=== PATIENT | female | born 1995 | race Caucasian/White ===

== ENCOUNTER 2017-12-19 23:33 | Inpatient (IN) | payer OTHER ==
[~2017-12-19] VITALS: Ht 160 cm; Wt 59.8 kg
[2017-12-20] VITALS (7 sets, daily range): BP systolic 112–142; BP diastolic 69–87; PULSE 61–77; TEMP 36.5–37; O2SAT 98–100; Ht 160 cm; Wt 59.8 kg
[2017-12-20] MEDS ORDERED: SODIUM CHLORIDE 0.9% 1000ML 1,000 ML IV STA (00:24)
[2017-12-20 00:36] LABS: BASO % 0.2 %; BASO ABS # 0.02 K/uL (0-0.2); EOS % 0.3 %; EOS ABS # 0.03 K/uL (0-0.5); HEMATOCRIT 38.4 % (37-47); HEMOGLOBIN 13.4 g/dL (12.0-16.0); IG# 0.03 K/uL (0.00-0.02); LYMPH % 20.7 %; LYMPH ABS # 2.22 K/uL (1.2-3.4); MEAN CELL VOLUME 87.3 fL (80-100); MEAN CORPUSCULAR HEMOGLOBIN 30.5 pg (25-34); MEAN CORPUSCULAR HGB CONC 34.9 g/dl (32-36); MONO % 9.1 %; MONO ABS # 0.98 K/uL (0.11-0.59); NEUT % 69.4 %; NEUT ABS # 7.46 K/uL (1.4-6.5); PLATELET COUNT 256 K/uL (130-400); RED CELL DISTRIBUTION WIDTH SD 38.9 fL (36.4-46.3); WHITE BLOOD COUNT 10.74 K/uL (4.8-10.8)
[2017-12-20] MEDS ORDERED: DROS3TAB12 PO (00:37)
[2017-12-20] MEDS ORDERED: ESCI10TA17 PO (00:37)
[2017-12-20] MEDS ORDERED: OPTIRAY 320 IV PRN (00:45)
[2017-12-20 00:58] LABS: ALBUMIN 3.7 gm/dl (3.4-5.0); CALCIUM 8.8 mg/dl (8.5-10.1); CREATININE 1.37 mg/dl (0.60-1.20); POTASSIUM 3.4 mmol/L (3.5-5.1)
[2017-12-20 01:00] LABS: TOTAL PROTEIN 7.4 gm/dl (6.4-8.2)
--- NOTE | 2017-12-20 01:02 | EMERGENCY ROOM VISIT NOTE ---
History Report prepared by Hawa: Kirill Hernandez Under the Supervision of: Dr. Dinesh Aquino M.D. First contact with patient: 23:53 Chief Complaint: PELVIC PAIN Stated Complaint: LOWER AB PAIN History of Present Illness The patient is a 22 year old female who presents to the Emergency Room with complaints of worsening LLQ abdominal pain that began 2 days ago. She describes the pain as an 8/10 in severity. She states that the pain radiates to her left back. She has associated symptoms of vomiting. She states the vomit is "normal color". She denies any vaginal symptoms, diarrhea, or chills. She denies any recent trauma to the area. She states that Tylenol helps her symptoms. 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 She states the symptoms resolved themselves and she drove herself home. Patient states that her last menstrual period was 18. She states she has had unprotected sex. She adds that she takes Kari. She denies a history of abdominal surgeries. She denies smoking. Source of History: patient Onset: 2 days ago Position: abdomen (LLQ) Symptom Intensity: 8/10 Timing: worsening Associated Symptoms: + vomiting, No chills, No diarrhea Note: He denies vaginal symptoms. Review of Systems See HPI for pertinent positives & negatives. A total of 10 systems reviewed and were otherwise negative. Past Medical & Surgical Medical Problems: (1) Flank pain Family History No pertinent family history. Social History Smoking Status: Never Smoker Current/Historical Medications Scheduled Drospirenone-Ethinyl Estradiol (Emeriat 28), 1 TAB PO DAILY Escitalopram (Lexapro), 10 MG PO DAILY Allergies Coded Allergies: No Known Allergies (Unverified , 12/20/17) Physical Exam Vital Signs Date Time Temp Pulse Resp B/P (MAP) Pulse Ox O2 Delivery O2 Flow Rate FiO2 12/20/17 03:03 60 108/89 97 Room Air 12/20/17 02:17 71 18 108/80 98 Room Air 12/20/17 01:37 74 18 136/82 100 Room Air 12/19/17 23:47 37.2 76 18 131/87 100 Room Air Physical Exam GENERAL: Patient is uncomfortable appearing and in mild distress. HEENT: No acute trauma, normocephalic atraumatic, mucous membranes moist, no nasal congestion, no scleral icterus. NECK: No stridor, no adenopathy, no meningismus, trachea is midline. LUNGS: No dyspnea. Clear to auscultation and equal bilaterally. No wheeze, no rhonchi. HEART: Regular rate and rhythm. No murmurs, rubs, gallops appreciated. ABDOMEN: Soft, vague left mid abdominal tenderness to palpitation, bowel sounds positive, no masses appreciated, no peritonitis. BACK: No midline tenderness, no CVA tenderness EXTREMITIES: Normal motion all extremities, no cyanosis, no edema. NEUROLOGIC: Alert and oriented, no acute motor or sensory deficits, no focal weakness, cranial nerves grossly intact. SKIN: No rash, no jaundice, no diaphoresis. Medical Decision & Procedures ER Provider Diagnostic Interpretation: Radiology results and stated below per my review and radiologist interpretation: Abdomen/Pelvis CT via [facility]: Left hydronephrosis with proximal 4mm uretal stone. Laboratory Results 12/20/17 00:02 Red Blood Count 4.40, Mean Corpuscular Volume 87.3, Mean Corpuscular Hemoglobin 30.5, Mean Corpuscular Hemoglobin Concent 34.9, Mean Platelet Volume 11.0, Neutrophils (%) (Auto) 69.4, Lymphocytes (%) (Auto) 20.7, Monocytes (%) (Auto) 9.1, Eosinophils (%) (Auto) 0.3, Basophils (%) (Auto) 0.2, Neutrophils # (Auto) 7.46, Lymphocytes # (Auto) 2.22, Monocytes # (Auto) 0.98, Eosinophils # (Auto) 0.03, Basophils # (Auto) 0.02 12/20/17 00:02 Test 12/19/17 23:55 12/20/17 00:02 Urine Color YELLOW Urine Appearance CLEAR (CLEAR) Urine pH 5.5 (4.5-7.5) Urine Specific [place] 1.019 (1.000-1.030) Urine Protein NEG (NEG) Urine Glucose (UA) NEG (NEG) Urine Ketones NEG (NEG) Urine Occult Blood NEG (NEG) Urine Nitrite NEG (NEG) Urine Bilirubin NEG (NEG) Urine Urobilinogen NEG (NEG) Urine Leukocyte Esterase NEG (NEG) Urine WBC (Auto) 1-5 /hpf (0-5) Urine RBC (Auto) 0-4 /hpf (0-4) Urine Hyaline Casts (Auto) 1-5 /lpf (0-5) Urine Epithelial Cells (Auto) 20-30 /lpf (0-5) Urine Bacteria (Auto) NEG (NEG) Urine Test NEG (NEG) White Blood Count 10.74 K/uL (4.8-10.8) Red Blood Count 4.40 M/uL (4.2-5.4) Hemoglobin 13.4 g/dL (12.0-16.0) Hematocrit 38.4 % (37-47) Mean Corpuscular Volume 87.3 fL (80-100) Mean Corpuscular Hemoglobin 30.5 pg (25-34) Mean Corpuscular Hemoglobin Concent 34.9 g/dl (32-36) Platelet Count 256 K/uL (130-400) Mean Platelet Volume 11.0 fL (7.4-10.4) Neutrophils (%) (Auto) 69.4 % Lymphocytes (%) (Auto) 20.7 % Monocytes (%) (Auto) 9.1 % Eosinophils (%) (Auto) 0.3 % Basophils (%) (Auto) 0.2 % Neutrophils # (Auto) 7.46 K/uL (1.4-6.5) Lymphocytes # (Auto) 2.22 K/uL (1.2-3.4) Monocytes # (Auto) 0.98 K/uL (0.11-0.59) Eosinophils # (Auto) 0.03 K/uL (0-0.5) Basophils # (Auto) 0.02 K/uL (0-0.2) RDW Standard Deviation 38.9 fL (36.4-46.3) RDW Coefficient of Variation 12.0 % (11.5-14.5) Immature Granulocyte % (Auto) 0.3 % Immature Granulocyte # (Auto) 0.03 K/uL (0.00-0.02) Anion Gap 7.0 mmol/L (3-11) Est Creatinine Clear Calc Drug Dose 52.8 ml/min Estimated GFR () 62.9 Estimated GFR (Non- 54.2 BUN/Creatinine Ratio 8.6 (10-20) Calcium Level 8.8 mg/dl (8.5-10.1) Total Bilirubin 0.8 mg/dl (0.2-1) Direct Bilirubin 0.2 mg/dl (0-0.2) Aspartate Amino Transf (AST/SGOT) 11 U/L (15-37) Alanine Aminotransferase (ALT/SGPT) 15 U/L (12-78) Alkaline Phosphatase 39 U/L (45-117) Total Protein 7.4 gm/dl (6.4-8.2) Albumin 3.7 gm/dl (3.4-5.0) Lipase 199 U/L (73-393) Laboratory results as reviewed by me. Medications Administered Medications (Trade) Dose Ordered Sig/Swati Route Start Time Stop Time Status Last Admin Dose Admin Sodium Chloride 1,000 ml @ 999 mls/hr Q1H1M STAT IV 12/20/17 00:24 12/20/17 01:24 DC 12/20/17 00:30 999 MLS/HR Ondansetron HCl (Zofran Inj) 4 mg NOW STAT IV 12/20/17 01:04 12/20/17 01:05 DC 12/20/17 01:12 4 MG Hydromorphone HCl (Dilaudid Inj) 1 mg NOW STAT IV 12/20/17 01:33 12/20/17 01:34 DC 12/20/17 01:36 1 MG Hydromorphone HCl (Dilaudid Inj) 0.5 mg NOW STAT IV 12/20/17 03:35 12/20/17 03:57 DC 12/20/17 04:05 0.5 MG ED Course 0005: The patient was evaluated in room C7. A complete history and physical exam was performed. 0024: Sodium Chloride 1000 ml @ 999 mls/hr IV 0045: Ioversol 125ml IV 0104: Zofran Inj 4mg IV 0133: Dilaudid Inj 1mg IV 0234: Upon reevaluation, the patient will be further evaluated. Discussed results and treatment plan with the patient. She verbalized understanding and agreement with the treatment plan. The patient will be evaluated for further management. Medical Decision Differential: Renal Colic, Pyelonephritis, Hydronephrosis, Appendicitis, Diverticulitis, Retroperitoneal Bleed/Infection, Aortic Pathology, MSK, Neurologic Pathology, amongst other pathologies entertained. 22 yr old female seen in conjunction with Dr Crain for left flank pain. Well appearing in moderate distress. Symptoms more flank than pelvic at this time. Given no previous stone issues, persistent pain, and some left side TTP felt it was reasonable doing CT abdo/pelv (discussed cancer risks). CT with left proximal ureteral stone with severe hydro. I do not feel this will likely pass given the 48 hours it already has been ongoing, in addition her Cr is bumped for a 22 yr old. Given IV fluids, diluadid and zofran with improvement. No evidence that this is infected at this time. Hospitalist consulted for further management. Medication Reconcilliation Current Medication List: was personally reviewed by me Blood Pressure Screening Patient's blood pressure: Normal blood pressure Blood pressure disposition: Did not require urgent referral Impression Primary Impression: Hydronephrosis, left Additional Impressions: Left ureteral stone Renal insufficiency Scribe Attestation The scribe's documentation has been prepared under my direction and personally reviewed by me in its entirety. I confirm that the note above accurately reflects all work, treatment, procedures, and medical decision making performed by me. Departure Information Dispostion Being Evaluated By Hospitalist Referrals Abril Mosley DO (PCP) Forms HOME CARE DOCUMENTATION FORM, IMPORTANT VISIT INFORMATION, WORK / SCHOOL INSTRUCTIONS Patient Instructions [facility] Problem Qualifiers
[2017-12-20] MEDS ORDERED: ONDANSETRON INJ 2 MG/ML 2 ML VIAL IV STA (01:04)
--- NOTE | 2017-12-20 01:08 | EMERGENCY ROOM VISIT NOTE ---
History First contact with patient: 23:53 Chief Complaint: PELVIC PAIN Stated Complaint: LOWER AB PAIN History of Present Illness The patient is a 22 year old female who presents to the Emergency Room with complaints of 2 days of left lower abdominal pain radiating to her left back, a/ w vomiting and chills. Tylenol makes it better. Pt saw her PCP today and transvaginal US was negative. Has no h/o cysts. Denies diarrhea, although reports pre-syncope earlier today while at the pharmacy, but was able to drive herself home. Has been hydrating well, eating food caused emesis. Reports she is on Lucinda OCP, LMP was 3 weeks ago. Also on Lexapro and probiotic for weight loss. Review of Systems See HPI for pertinent positives and negatives. Past Medical/Surgical History Medical Problems: (1) Flank pain Social History Smoking Status: Never Smoker Alcohol Use: occasionally Drug Use: none Current/Historical Medications Scheduled Drospirenone-Ethinyl Estradiol (Emerita 28), 1 TAB PO DAILY Escitalopram (Lexapro), 10 MG PO DAILY Physical Exam Vital Signs Date Time Temp Pulse Resp B/P (MAP) Pulse Ox O2 Delivery O2 Flow Rate FiO2 12/20/17 04:05 65 17 138/77 98 12/20/17 03:03 60 108/89 97 Room Air 12/20/17 02:17 71 18 108/80 98 Room Air 12/20/17 01:37 74 18 136/82 100 Room Air 12/19/17 23:47 37.2 76 18 131/87 100 Room Air Physical Exam GENERAL: Awake, alert, well-appearing, in no distress HENT: Normocephalic, atraumatic. Oropharynx unremarkable. EYES: Normal conjunctiva. Sclera non-icteric. NECK: Supple. No nuchal rigidity. FROM. No JVD. RESPIRATORY: Clear to auscultation. CARDIAC: Regular rate, normal rhythm. Extremities warm and well perfused. Pulses equal. ABDOMEN: Soft, non-distended. Mild tenderness to palpation in LLQ. No rebound or guarding. No masses. RECTAL: Deferred. MUSCULOSKELETAL: Chest examination reveals no tenderness. The back is symmetrical on inspection without obvious abnormality. There is no CVA tenderness to palpation. No joint edema. LOWER EXTREMITIES: Calves are equal size bilaterally and non-tender. No edema. No discoloration. NEURO: Normal sensorium. No sensory or motor deficits noted. SKIN: No rash or jaundice noted. Medical Decision & Procedures Laboratory Results 12/20/17 00:02 Red Blood Count 4.40, Mean Corpuscular Volume 87.3, Mean Corpuscular Hemoglobin 30.5, Mean Corpuscular Hemoglobin Concent 34.9, Mean Platelet Volume 11.0, Neutrophils (%) (Auto) 69.4, Lymphocytes (%) (Auto) 20.7, Monocytes (%) (Auto) 9.1, Eosinophils (%) (Auto) 0.3, Basophils (%) (Auto) 0.2, Neutrophils # (Auto) 7.46, Lymphocytes # (Auto) 2.22, Monocytes # (Auto) 0.98, Eosinophils # (Auto) 0.03, Basophils # (Auto) 0.02 12/20/17 00:02 Test 12/19/17 23:55 12/20/17 00:02 Urine Color YELLOW Urine Appearance CLEAR (CLEAR) Urine pH 5.5 (4.5-7.5) Urine Specific [place] 1.019 (1.000-1.030) Urine Protein NEG (NEG) Urine Glucose (UA) NEG (NEG) Urine Ketones NEG (NEG) Urine Occult Blood NEG (NEG) Urine Nitrite NEG (NEG) Urine Bilirubin NEG (NEG) Urine Urobilinogen NEG (NEG) Urine Leukocyte Esterase NEG (NEG) Urine WBC (Auto) 1-5 /hpf (0-5) Urine RBC (Auto) 0-4 /hpf (0-4) Urine Hyaline Casts (Auto) 1-5 /lpf (0-5) Urine Epithelial Cells (Auto) 20-30 /lpf (0-5) Urine Bacteria (Auto) NEG (NEG) Urine Test NEG (NEG) White Blood Count 10.74 K/uL (4.8-10.8) Red Blood Count 4.40 M/uL (4.2-5.4) Hemoglobin 13.4 g/dL (12.0-16.0) Hematocrit 38.4 % (37-47) Mean Corpuscular Volume 87.3 fL (80-100) Mean Corpuscular Hemoglobin 30.5 pg (25-34) Mean Corpuscular Hemoglobin Concent 34.9 g/dl (32-36) Platelet Count 256 K/uL (130-400) Mean Platelet Volume 11.0 fL (7.4-10.4) Neutrophils (%) (Auto) 69.4 % Lymphocytes (%) (Auto) 20.7 % Monocytes (%) (Auto) 9.1 % Eosinophils (%) (Auto) 0.3 % Basophils (%) (Auto) 0.2 % Neutrophils # (Auto) 7.46 K/uL (1.4-6.5) Lymphocytes # (Auto) 2.22 K/uL (1.2-3.4) Monocytes # (Auto) 0.98 K/uL (0.11-0.59) Eosinophils # (Auto) 0.03 K/uL (0-0.5) Basophils # (Auto) 0.02 K/uL (0-0.2) RDW Standard Deviation 38.9 fL (36.4-46.3) RDW Coefficient of Variation 12.0 % (11.5-14.5) Immature Granulocyte % (Auto) 0.3 % Immature Granulocyte # (Auto) 0.03 K/uL (0.00-0.02) Anion Gap 7.0 mmol/L (3-11) Est Creatinine Clear Calc Drug Dose 52.8 ml/min Estimated GFR () 62.9 Estimated GFR (Non- 54.2 BUN/Creatinine Ratio 8.6 (10-20) Calcium Level 8.8 mg/dl (8.5-10.1) Total Bilirubin 0.8 mg/dl (0.2-1) Direct Bilirubin 0.2 mg/dl (0-0.2) Aspartate Amino Transf (AST/SGOT) 11 U/L (15-37) Alanine Aminotransferase (ALT/SGPT) 15 U/L (12-78) Alkaline Phosphatase 39 U/L (45-117) Total Protein 7.4 gm/dl (6.4-8.2) Albumin 3.7 gm/dl (3.4-5.0) Lipase 199 U/L (73-393) Medications Administered Medications (Trade) Dose Ordered Sig/Swati Route Start Time Stop Time Status Last Admin Dose Admin Sodium Chloride 1,000 ml @ 999 mls/hr Q1H1M STAT IV 12/20/17 00:24 12/20/17 01:24 DC 12/20/17 00:30 999 MLS/HR Ondansetron HCl (Zofran Inj) 4 mg NOW STAT IV 12/20/17 01:04 12/20/17 01:05 DC 12/20/17 01:12 4 MG Hydromorphone HCl (Dilaudid Inj) 1 mg NOW STAT IV 12/20/17 01:33 12/20/17 01:34 DC 12/20/17 01:36 1 MG Hydromorphone HCl (Dilaudid Inj) 0.5 mg NOW STAT IV 12/20/17 03:35 12/20/17 03:57 DC 12/20/17 04:05 0.5 MG ED Course 2354 signed up, reviewed records, assessed patient [id number] attending sees pt, orders labs [address] with pt. Pain is controlled with dilaudid. 0215 d/w [facility] hospitalist - given pt's need for IV pain control and proximal stone 4mm, likely will require urology intervention, possibly a stent. [facility] will admit. Medical Decision The patient is a 22 year old female who presents to the Emergency Room with complaints of 2 days of left lower abdominal pain radiating to her left back, a/ w vomiting and chills. Tylenol makes it better. Pt saw her PCP today and transvaginal US was negative. Has no h/o cysts. Denies diarrhea, although reports pre-syncope earlier today while at the pharmacy, but was able to drive herself home. Has been hydrating well, eating food caused emesis. Reports she is on Lucinda OCP, LMP was 3 weeks ago. Also on Lexapro and probiotic for weight loss. 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 Urine is negative for infection. D/w pt option of going home with PO pain control vs admission and urology consult tomorrow possibly, and pt opts to stay. D/w [facility] hospitalist team, they will admit her. Impression Primary Impression: Left nephrolithiasis Additional Impression: Elevated serum creatinine Departure Information Dispostion Admitted as an inpatient Condition GOOD Patient Instructions [facility] Resident Tracking Resident Involvement: Resident Care Provided Care Provided: Adult ED Problem Qualifiers
[2017-12-20] MEDS ORDERED: HYDROmorphone INJ 1 MG/ML SYR IV STA (01:33)
[2017-12-20] MEDS ORDERED: HYDROmorphone INJ 0.5 MG/0.5 ML SYR IV STA (03:35)
[2017-12-20] MEDS ORDERED: POTASSIUM CHLORIDE 20 MEQ TABCR PO STA (03:44)
[2017-12-20] MEDS ORDERED: ALUMINUM/MAGNESIUM/SIMETH (MAALOX MAX) 30 ML UDC PO PRN (03:45)
[2017-12-20] MEDS ORDERED: POLYETHYLENE (MIRALAX) 17 GM PACK PO PRN ×2 (03:45→06:45)
[2017-12-20] MEDS ORDERED: ONDANSETRON INJ 2 MG/ML 2 ML VIAL IV PRN ×3 (03:45→10:15)
[2017-12-20] MEDS ORDERED: SODIUM CHLORIDE 0.9% 1000ML 1,000 ML IV SCH (03:45)
[2017-12-20] MEDS ORDERED: ACETAMINOPHEN 325 MG TAB PO PRN (03:45)
[2017-12-20] MEDS ORDERED: MAGNESIUM HYDROXIDE SUSP 30 ML UDC PO PRN (03:45)
--- NOTE | 2017-12-20 03:59 | History and Physical ---
History & Physical Date & Time of Service: Dec 20, 2017 at 03:50 Chief Complaint: Lower Ab Pain Primary Care Physician: Abril Mosley DO History of Present Illness Source: patient The patient is a 22 year old female who presents to the Emergency Room with complaints of flank pain. The pain is located on her left flank. It started 2 days ago. It is a sharp pain that radiates to her back. She rates the pain as a 8/10 in severity. It is worse with ambulation. She has had associated vomiting and fever. She denies any dysuria, hematuria, vaginal bleeding, vaginal discharge, diarrhea, or constipation. She did go and see her PCP who gave her symptomatic medications and sent her for a pelvic ultrasound today due to concern for a ovarian cyst. This result came back as negative. The patient continued to have severe pain therefore she came to the ED. In the ED her vitals were stable. She was found to have a creatinine of 1.37 and potassium of 3.7. CT showed a 4mm stone with left sided hydronephrosis. Her UA was negative as was a urine test. Past Medical/Surgical History Depression/Anxiety -lexapro Family History Noncontributory Social History Smoking Status: Never Smoker Alcohol Use: none Drug Use: none Marital Status: single Occupational Status: student Immunizations History of Influenza Vaccine: Unknown History of Tetanus Vaccine?: Unknown History of Pneumococcal: Unknown History of Hepatitis B Vaccine: Unknown Multi-Drug Resistant Organisms History of MDRO: No Allergies Coded Allergies: No Known Allergies (Unverified , 12/20/17) Home Medications Scheduled Drospirenone-Ethinyl Estradiol (Emerita 28), 1 TAB PO DAILY Escitalopram (Lexapro), 10 MG PO DAILY Sulfa/Trimethoprim (Bactrim Ds 800MG/160MG), 1 TAB PO BID Scheduled PRN Tramadol (Ultram), 1 TAB PO TID PRN for Pain Review of Systems Constitutional: + fever, + sweats, No chills Respiratory: No cough, No sputum, No shortness of breath Cardiovascular: No chest pain, No edema, No palpitations Abdomen: + pain, + nausea, + vomiting, No diarrhea, No constipation, No GI bleeding Genitourinary - Female: No dysuria, No urinary frequency, No vaginal bleeding, No vaginal discharge, No vaginal itching Endocrine: No fatigue Hematologic / Lymphatic: No abnormal bleeding/bruising Integumentary: No rash, No itch, No new/changing skin lesions Physical Exam Vital Signs Date Time Temp Pulse Resp B/P (MAP) Pulse Ox O2 Delivery O2 Flow Rate FiO2 12/20/17 03:03 60 108/89 97 Room Air 12/20/17 02:17 71 18 108/80 98 Room Air 12/20/17 01:37 74 18 136/82 100 Room Air 12/19/17 23:47 37.2 76 18 131/87 100 Room Air General Appearance: WD/WN, no apparent distress Head: normocephalic, atraumatic ENT: hearing grossly normal, pharynx normal Neck: supple, trachea midline Respiratory/Chest: lungs clear, no respiratory distress, no accessory muscle use Cardiovascular: regular rate, rhythm, no murmur, normal peripheral pulses Abdomen/GI: normal bowel sounds, soft, + tenderness (LLQ) Back: normal inspection, no muscle spasm, normal range of motion, + left CVA tenderness Extremities/Musculoskelatal: no calf tenderness, no pedal edema, non-tender Neurologic/Psych: alert, normal mood/affect, oriented x 3 Skin: normal color, warm/dry, no rash Diagnostics Laboratory Results Results Past 24 Hours Test 12/19/17 23:55 12/20/17 00:02 Range/Units Urine Color YELLOW Urine Appearance CLEAR CLEAR Urine pH 5.5 4.5-7.5 Urine Specific [place] 1.019 1.000-1.030 Urine Protein NEG NEG Urine Glucose (UA) NEG NEG Urine Ketones NEG NEG Urine Occult Blood NEG NEG Urine Nitrite NEG NEG Urine Bilirubin NEG NEG Urine Urobilinogen NEG NEG Urine Leukocyte Esterase NEG NEG Urine WBC (Auto) 1-5 0-5 /hpf Urine RBC (Auto) 0-4 0-4 /hpf Urine Hyaline Casts (Auto) 1-5 0-5 /lpf Urine Epithelial Cells (Auto) 20-30 0-5 /lpf Urine Bacteria (Auto) NEG NEG Urine Test NEG NEG White Blood Count 10.74 4.8-10.8 K/uL Red Blood Count 4.40 4.2-5.4 M/uL Hemoglobin 13.4 12.0-16.0 g/dL Hematocrit 38.4 37-47 % Mean Corpuscular Volume 87.3 80-100 fL Mean Corpuscular Hemoglobin 30.5 25-34 pg Mean Corpuscular Hemoglobin Concent 34.9 32-36 g/dl Platelet Count 256 130-400 K/uL Mean Platelet Volume 11.0 7.4-10.4 fL Neutrophils (%) (Auto) 69.4 % Lymphocytes (%) (Auto) 20.7 % Monocytes (%) (Auto) 9.1 % Eosinophils (%) (Auto) 0.3 % Basophils (%) (Auto) 0.2 % Neutrophils # (Auto) 7.46 1.4-6.5 K/uL Lymphocytes # (Auto) 2.22 1.2-3.4 K/uL Monocytes # (Auto) 0.98 0.11-0.59 K/uL Eosinophils # (Auto) 0.03 0-0.5 K/uL Basophils # (Auto) 0.02 0-0.2 K/uL RDW Standard Deviation 38.9 36.4-46.3 fL RDW Coefficient of Variation 12.0 11.5-14.5 % Immature Granulocyte % (Auto) 0.3 % Immature Granulocyte # (Auto) 0.03 0.00-0.02 K/uL Sodium Level 134 136-145 mmol/L Potassium Level 3.4 3.5-5.1 mmol/L Chloride Level 102 98-107 mmol/L Carbon Dioxide Level 25 21-32 mmol/L Anion Gap 7.0 3-11 mmol/L Blood Urea Nitrogen 12 7-18 mg/dl Creatinine 1.37 0.60-1.20 mg/dl Est Creatinine Clear Calc Drug Dose 52.8 ml/min Estimated GFR () 62.9 Estimated GFR (Non- 54.2 BUN/Creatinine Ratio 8.6 10-20 Random Glucose 114 70-99 mg/dl Calcium Level 8.8 8.5-10.1 mg/dl Total Bilirubin 0.8 0.2-1 mg/dl Direct Bilirubin 0.2 0-0.2 mg/dl Aspartate Amino Transf (AST/SGOT) 11 15-37 U/L Alanine Aminotransferase (ALT/SGPT) 15 12-78 U/L Alkaline Phosphatase 39 45-117 U/L Total Protein 7.4 6.4-8.2 gm/dl Albumin 3.7 3.4-5.0 gm/dl Lipase 199 73-393 U/L Diagnostic Radiology Abdomen CT/Pelvis; 4mm kidney stone with hydronephrosis Impression Assessment and Plan 22 year old female presented with left sided flank pain and was found to have a 4mm kidney stone with associated hydronephrosis Kidney Stone - Urology consult placed for possible need for stent placement - IV fluids 100mls/hr - Dilaudid 0.5mg q2 prn pain - Zofran 4mg prn nausea - Ceftriaxone 2grams IV Q24 - NPO Hypokalemia - 40meq added to IV fluids - follow bmp BRENDA on CKD stage 3a - creatine elevated at 1.37 - unusual to have low GFR in 22 year old female - warrants workup as outpatient Depression/Anxiety - hold lexapro Contraception use - hold OCP DVT prophylaxis - patient able to ambulate and possible procedure tomorrow therefore chemical prophylaxis not warranted - SCD's FULL CODE Attending addendum: I have physically seen this patient, have supervised the medical residents activities, and agree with the H&P unless as otherwise noted. Assessment and Plan: 4 mm left ureteral stone with hydronephrosis/AK I-- N.p.o. Ceftriaxone 1 g IV daily Follow urine culture and sensitivity Dilaudid IV as needed pain. IV fluids. Serial CBC with differential, BMP and magnesium level. Zofran as needed Level of Care Med/Surg Advanced Directives Existing Advance Directive: No Existing Living Will: No Existing Power of Tag Maker: No Resuscitation Status FULL RESUSCITATION VTE Prophylaxis VTE Risk Assessment Done? Y/N: Yes Risk Level: Low Given or contraindicated: SCD's Social Service Consult None Apply
[2017-12-20] MEDS ORDERED: CEFTRIAXONE SOD INJ 2,000 MG in DEXTROSE 5% 50ML 50 ML IV SCH (06:00)
[2017-12-20] MEDS: POTASSIUM CHLORIDE INJ 40 MEQ in SODIUM CHLORIDE 0.9% 1000ML 1,000 ML IV SCH ×2 (06:13→15:23)
[2017-12-20] MEDS: HYDROmorphone INJ 0.5 MG/0.5 ML SYR IV PRN ×2 (06:20→08:19)
--- NOTE | 2017-12-20 08:49 | DIAGNOSTIC IMAGING REPORT ---
ABD/PELVIS IV CONTRAST ONLY CLINICAL HISTORY: 22 years-old Female presenting with left flank pain, nausea/voimting x 2 days. TECHNIQUE: Multidetector CT of the abdomen and pelvis was performed after the administration of intravenous contrast. IV contrast: 94 mL of Optiray 320. A dose lowering technique was used consistent with the principles of ALARA (as low as reasonably achievable). COMPARISON: None. CT DOSE (mGy.cm): The estimated cumulative dose is 298.86 mGy.cm. FINDINGS: Quality Assurance Supervisor Trim topogram: Unremarkable. Lung bases: Lungs and pleural spaces clear. Normal heart size. No pericardial or pleural effusion. Liver: Normal morphology. No liver lesion. Patent hepatic vasculature. Biliary: No intrahepatic or extrahepatic biliary ductal dilatation. Normal gallbladder. Pancreas: Normal. Spleen: Normal. Adrenal glands: Normal. Kidneys and ureters: Excretion of contrast from the right kidney with normal appearance of the right renal parenchyma. No right hydronephrosis. Delayed phase of perfusion in the left kidney with left renal enlargement and left perinephric fat stranding. Moderate left pelvocaliectasis. An obstructing calculus measuring 4 mm is noted at the left ureteropelvic junction. Mild urothelial thickening and periureteral fat stranding at the level of the renal pelvis and proximal left ureter. The right ureter is normal. Bladder: Normal. No bladder calculi. Pelvic organs: Uterus and ovaries normal. Bowel: Mild stool burden throughout normal caliber colon. The appendix is normal. No bowel obstruction. Peritoneal cavity: Trace free fluid in the pelvis. Lymph nodes: No enlarged lymph nodes in the abdomen or pelvis. Vasculature: Aorta and IVC patent and normal in caliber. Abdominal wall: Small fat-containing umbilical hernia. Musculoskeletal: Congenital bifid L5 vertebral body. IMPRESSION: 1. Obstructing 4 mm calculus at the left ureteropelvic junction with resultant moderate left hydronephrosis. 2. No additional renal or ureteral calculi. No bladder calculi. Electronically signed by: Mitchell Kaur M.D. 12/20/2017 8:48 AM Dictated Date/Time: 12/20/2017 8:42 AM
[2017-12-20] MEDS ORDERED: DROSPIRENONE ETHINYL ESTRADIOL PO SCH (09:00)
[2017-12-20] MEDS ORDERED: ESCITALOPRAM OXALATE 10 MG TAB PO SCH (09:00)
--- NOTE | 2017-12-20 09:00 | DIAGNOSTIC IMAGING REPORT ---
KUB CLINICAL HISTORY: 22 years-old Female presenting with ureteral stone, flank pain. TECHNIQUE: 12/20/2017 COMPARISON: CT of the abdomen and pelvis performed earlier the same day. FINDINGS: Nonobstructive bowel gas pattern. No gross pneumoperitoneum. Delayed excretion of contrast in the left kidney with abrupt cutoff at the level of the obstructing proximal left ureteral calculus, which projects at the level of L2-3. Dilation of the left renal collecting system. Opacification of the urinary bladder. Osseous structures normal. Lung bases clear. IMPRESSION: 1. Moderate left hydronephrosis with an obstructing left ureteral calculus at the level of L2-3. Electronically signed by: Mitchell Kaur M.D. 12/20/2017 8:58 AM Dictated Date/Time: 12/20/2017 8:57 AM
--- NOTE | 2017-12-20 09:56 | Family Medicine Progress Note ---
Progress Note Date of Service Dec 20, 2017. Subjective Pt evaluation today including: conversation w/ patient, physical exam, chart review, lab review, review of inpatient medication list Pain: 6/10 pain reported PO Intake: NPO Voiding: no voiding problems Ms. Beaulieu reports her pain is slightly improved with analgesia. She still notes 6/10 left sided flank pain that radiates to her back. She denies nausea, vomiting, dysuria, fever or chills. She states she has never had problems with her kidneys in the past and has never had a kidney stone before. Constitutional: No fever, No chills Respiratory: No cough, No shortness of breath Cardiovascular: No chest pain, No edema Abdomen: + pain, No nausea, No vomiting, No diarrhea, No constipation Female : No dysuria, No urinary frequency, No hematuria All Other Systems: Reviewed and Negative Medications Current Inpatient Medications Medications (Trade) Dose Ordered Sig/Swati Route Start Time Stop Time Status Last Admin Dose Admin Ioversol (Optiray 320) 125 ml UD PRN IV 12/20/17 00:45 12/24/17 00:44 Acetaminophen (Tylenol Tab) 650 mg Q4H PRN PO 12/20/17 03:45 01/19/18 03:44 Al Hydrox/Mg Hydrox/Simethicone (Maalox Max Susp) 15 ml Q4H PRN PO 12/20/17 03:45 01/19/18 03:44 Magnesium Hydroxide (Milk Of Magnesia Susp) 30 ml Q6H PRN PO 12/20/17 03:45 01/19/18 03:44 Ondansetron HCl (Zofran Inj) 4 mg Q6H PRN IV 12/20/17 03:45 01/19/18 03:44 Hydromorphone HCl (Dilaudid Inj) 0.5 mg Q2HWA PRN IV 12/20/17 03:45 01/03/18 03:44 12/20/17 08:19 0.5 MG Ondansetron HCl (Zofran Inj) 4 mg Q4H PRN IV 12/20/17 03:45 01/19/18 03:44 Ceftriaxone Sodium 2000 mg/ Dextrose 70 ml @ 100 mls/hr Q24H IV 12/20/17 06:00 12/30/17 05:59 12/20/17 06:14 100 MLS/HR Potassium Chloride 40 meq/ Sodium Chloride 1,020 ml @ 100 mls/hr [id number] IV 12/20/17 05:30 01/19/18 05:29 12/20/17 06:13 100 MLS/HR Polyethylene (Miralax Powder Packet) 17 gm DAILY PRN PO 12/20/17 06:45 01/19/18 06:44 Objective Vital Signs Date Time Temp Pulse Resp B/P (MAP) Pulse Ox O2 Delivery O2 Flow Rate FiO2 12/20/17 08:34 Room Air 12/20/17 07:59 36.8 63 16 122/74 (90) 100 Room Air 12/20/17 06:02 37.0 63 18 142/87 Room Air 12/20/17 04:43 79 20 143/83 98 Room Air 12/20/17 04:05 65 17 138/77 98 12/20/17 03:03 60 108/89 97 Room Air 12/20/17 02:17 71 18 108/80 98 Room Air 12/20/17 01:37 74 18 136/82 100 Room Air 12/19/17 23:47 37.2 76 18 131/87 100 Room Air Physical Exam General Appearance: WD/WN, no apparent distress Respiratory/Chest: lungs clear, normal breath sounds, no respiratory distress, no accessory muscle use Cardiovascular: regular rate, rhythm, no edema, no gallop, no murmur Abdomen: normal bowel sounds, soft, no organomegaly, no pulsatile mass, + pertinent finding (tender over left flank) Extremities: no pedal edema, no calf tenderness Laboratory Results Last 24 Hours Test 12/19/17 23:55 12/20/17 00:02 Urine Color YELLOW Urine Appearance CLEAR Urine pH 5.5 Urine Specific Wylie 1.019 Urine Protein NEG Urine Glucose (UA) NEG Urine Ketones NEG Urine Occult Blood NEG Urine Nitrite NEG Urine Bilirubin NEG Urine Urobilinogen NEG Urine Leukocyte Esterase NEG Urine WBC (Auto) 1-5 /hpf Urine RBC (Auto) 0-4 /hpf Urine Hyaline Casts (Auto) 1-5 /lpf Urine Epithelial Cells (Auto) 20-30 /lpf Urine Bacteria (Auto) NEG Urine Test NEG White Blood Count 10.74 K/uL Red Blood Count 4.40 M/uL Hemoglobin 13.4 g/dL Hematocrit 38.4 % Mean Corpuscular Volume 87.3 fL Mean Corpuscular Hemoglobin 30.5 pg Mean Corpuscular Hemoglobin Concent 34.9 g/dl Platelet Count 256 K/uL Mean Platelet Volume 11.0 fL Neutrophils (%) (Auto) 69.4 % Lymphocytes (%) (Auto) 20.7 % Monocytes (%) (Auto) 9.1 % Eosinophils (%) (Auto) 0.3 % Basophils (%) (Auto) 0.2 % Neutrophils # (Auto) 7.46 K/uL Lymphocytes # (Auto) 2.22 K/uL Monocytes # (Auto) 0.98 K/uL Eosinophils # (Auto) 0.03 K/uL Basophils # (Auto) 0.02 K/uL RDW Standard Deviation 38.9 fL RDW Coefficient of Variation 12.0 % Immature Granulocyte % (Auto) 0.3 % Immature Granulocyte # (Auto) 0.03 K/uL Sodium Level 134 mmol/L Potassium Level 3.4 mmol/L Chloride Level 102 mmol/L Carbon Dioxide Level 25 mmol/L Anion Gap 7.0 mmol/L Blood Urea Nitrogen 12 mg/dl Creatinine 1.37 mg/dl Est Creatinine Clear Calc Drug Dose 52.8 ml/min Estimated GFR () 62.9 Estimated GFR (Non- 54.2 BUN/Creatinine Ratio 8.6 Random Glucose 114 mg/dl Calcium Level 8.8 mg/dl Total Bilirubin 0.8 mg/dl Direct Bilirubin 0.2 mg/dl Aspartate Amino Transf (AST/SGOT) 11 U/L Alanine Aminotransferase (ALT/SGPT) 15 U/L Alkaline Phosphatase 39 U/L Total Protein 7.4 gm/dl Albumin 3.7 gm/dl Lipase 199 U/L Assessment and Plan Ms. Beaulieu is a 22 year old female with a history of depression who presented with left sided flank pain and was found to have a 4mm kidney stone with associated hydronephrosis Kidney Stone - Thank you to urology for consult - will undergo stent placement - Continue IV fluids 100mls/hr (NS + KCl) - Dilaudid 0.5mg q2 prn pain - Zofran 4mg prn nausea - Ceftriaxone 2grams IV Q24 - no sign of infection, but prophylactic given hydronephrosis and urinary stasis - NPO for stent placement Hypokalemia - 40meq added to IV fluids - K 3.4 on arrival, recheck tomorrow BRENDA on CKD stage 3a - creatine elevated at 1.37 Depression/Anxiety - hold lexapro Contraception use - hold OCP DVT prophylaxis: Pt able to ambulate, SCDs Code Status: Full Disposition: remains on med/surg Resident Tracking Resident Involvement: Resident Care Provided Care Provided: Adult Hospital Medicine
[2017-12-20] MEDS ORDERED: KETOROLAC TROMETHAMINE 15 MG/ML VIAL IV PRN (10:00)
[2017-12-20] MEDS ORDERED: HYDROmorphone INJ 0.5 MG/0.5 ML SYR IV PRN (10:00)
[2017-12-20] MEDS ORDERED: EpHEDrine SULFATE INJ 50 MG/ML AMP IV PRN (10:15)
[2017-12-20] MEDS ORDERED: FENTANYL CITRATE INJ 50 MCG/1 ML 2 ML VIAL IV PRN (10:15)
[2017-12-20] MEDS ORDERED: ATROPINE SULFATE 0.1 MG/ML 5ML SYR IV PRN (10:15)
--- NOTE | 2017-12-20 12:10 | Urology Consultation ---
History General Date of Service: Dec 20, 2017. Primary Care Physician: Abril Mosley DO History of Present Illness 22 y/o female withno history of stones had a sudden onset of l sided pain friday was seen by her doctor and had a pelvic sonogram that was negative . She reports emesis and a temp of 100 at some time Friday . Her pain was much more severe yesterday and she went to the ER and had a ct with contrast that showed a left proximal 4 to0 5 mm ureteral stone . Her wbc is nl and the is no pyuria or bacteria in the urine . A KUB this AM shows persistent high grade obstruction with stone still in proximal ureter. Discussed options of stent today w ESWL Friday vs observation with trial of passage and stent in AM unless stone migrates to the distal ureter Laboratory Labs were reviewed and are within normal limits unless listed below. Labs are available in the chart and at [facility] Problem List Medical Problems: (1) Elevated serum creatinine Status: Acute (2) Hydronephrosis, left Status: Acute (3) Left nephrolithiasis Status: Acute (4) Left ureteral stone Status: Acute (5) Renal insufficiency Status: Acute Social History Hx Tobacco Use In Past Year?: No Occupation status: student Allergies Coded Allergies: No Known Allergies (Unverified , 12/20/17) Medications Home Medications: Home Meds and Scripts Medications Dose Route/Sig Max Daily Dose Days Date Category Emerita 28 (Drospirenone-Ethinyl Estradiol) 1 Tab Tab 1 Tab PO DAILY 28 12/20/17 Reported Lexapro (Escitalopram Oxalate) 10 Mg Tab 10 Mg PO DAILY 12/20/17 Reported Inpatient Medications: Current Inpatient Medications Medications (Trade) Dose Ordered Sig/Swati Route Start Time Stop Time Status Last Admin Dose Admin Ioversol (Optiray 320) 125 ml UD PRN IV 12/20/17 00:45 12/24/17 00:44 Acetaminophen (Tylenol Tab) 650 mg Q4H PRN PO 12/20/17 03:45 01/19/18 03:44 Al Hydrox/Mg Hydrox/Simethicone (Maalox Max Susp) 15 ml Q4H PRN PO 12/20/17 03:45 01/19/18 03:44 Magnesium Hydroxide (Milk Of Magnesia Susp) 30 ml Q6H PRN PO 12/20/17 03:45 01/19/18 03:44 Ondansetron HCl (Zofran Inj) 4 mg Q6H PRN IV 12/20/17 03:45 01/19/18 03:44 Ondansetron HCl (Zofran Inj) 4 mg Q4H PRN IV 12/20/17 03:45 01/19/18 03:44 Ceftriaxone Sodium 2000 mg/ Dextrose 70 ml @ 100 mls/hr Q24H IV 12/20/17 06:00 12/30/17 05:59 12/20/17 06:14 100 MLS/HR Potassium Chloride 40 meq/ Sodium Chloride 1,020 ml @ 100 mls/hr [id number] IV 12/20/17 05:30 01/19/18 05:29 12/20/17 06:13 100 MLS/HR Polyethylene (Miralax Powder Packet) 17 gm DAILY PRN PO 12/20/17 06:45 01/19/18 06:44 Hydromorphone HCl (Dilaudid Inj) 0.5 mg Q8H PRN IV 12/20/17 10:00 01/03/18 03:44 Ketorolac Tromethamine (Toradol Inj) 15 mg Q6H PRN IV 12/20/17 10:00 12/25/17 09:59 12/20/17 10:13 15 MG Fentanyl Citrate (Fentanyl Inj) 25 mcg Q5M PRN IV 12/20/17 10:15 12/20/17 15:00 Ondansetron HCl (Zofran Inj) 4 mg ONE PRN IV 12/20/17 10:15 12/20/17 15:00 Ephedrine Sulfate (EpHEDrine SULFATE INJ) 5 mg Q5M PRN IV 12/20/17 10:15 12/20/17 15:00 Atropine Sulfate (Atropine Sulfate 0.1mg/ml Inj) 0.5 mg Q1M PRN IV 12/20/17 10:15 12/20/17 15:00 Review of Systems Review of Systems Constitutional: + fever, No chills Eyes: No see HPI, No blurred vision, No double vision, No eye pain, No loss of night vision, No problem reported Neurological: + dizzy Endocrine: + see HPI Gastrointestinal: + abdominal pain, + vomiting Cardiovascular: No chest pain, No swelling ankles/feet Respiratory: No shortness of breath Skin: No see HPI, No rash, No boils, No dry skin, No problem reported Musculoskeletal: No see HPI, No joint pain, No neck pain, No back pain, No arthritis, No problem reported Blood / Lymphatic: No see HPI, No bleed easily, No bruise easily, No swollen glands, No problem reported Ears / Nose / Throat: No see HPI, No hearing loss, No sinus, No hoarse voice, No sore throat, No problem reported Psychologic / Mental: + see HPI, No trouble remembering, No difficulty sleeping , No problem reported Female : + see HPI Physical Exam Vital Signs: Vital Signs Past 12 Hours Date Time Temp Pulse Resp B/P (MAP) Pulse Ox O2 Delivery O2 Flow Rate FiO2 12/20/17 08:34 Room Air 12/20/17 07:59 36.8 63 16 122/74 (90) 100 Room Air 12/20/17 06:02 37.0 63 18 142/87 Room Air 12/20/17 04:43 79 20 143/83 98 Room Air 12/20/17 04:05 65 17 138/77 98 12/20/17 03:03 60 108/89 97 Room Air 12/20/17 02:17 71 18 108/80 98 Room Air 12/20/17 01:37 74 18 136/82 100 Room Air Physical Exam: General Appearance: + mild distress Eyes: bilateral eyes normal inspection, bilateral eyes PERRL, bilateral eyes EOMI ENT: normal ENT inspection, hearing grossly normal, TMs normal, pharynx normal Neck: supple, no adenopathy, thyroid normal, no JVD Respiratory/Chest: chest non-tender, lungs clear, no respiratory distress, no accessory muscle use Cardiovascular: no edema Gastrointestinal: Abdomen: LUQ tenderness Renal: cva tenderness Extremities: normal range of motion, non-tender, normal inspection, no pedal edema, no calf tenderness, normal capillary refill 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
[2017-12-20] MEDS ORDERED: MIDAZOLAM HCL 1 MG/ML 2ML VIAL ONE (12:54)
[2017-12-20] MEDS ORDERED: LIDOCAINE HCL 2% 2 ML VIAL (20MG/ML) ONE (12:54)
[2017-12-20] MEDS ORDERED: ONDANSETRON INJ 2 MG/ML 2 ML VIAL ONE (12:54)
[2017-12-20] MEDS ORDERED: PROPOFOL IV EMULSION 10 MG/ML 20 ML VIAL IV ONE (12:54)
[2017-12-20] MEDS ORDERED: FENTANYL CITRATE INJ 50 MCG/1 ML 2 ML VIAL ONE ×2 (12:56→13:31)
[2017-12-20] MEDS ORDERED: Cysto-Conray II 17.2% 250ML BOTTLE ONE (13:06)
--- NOTE | 2017-12-20 13:47 | DIAGNOSTIC IMAGING REPORT ---
L RETROGRADE INCLUDES KUB CLINICAL HISTORY: 22 years-old Female presenting with LEFT STENT. TECHNIQUE: 1 fluoroscopic spot image(s) obtained as part of an intraoperative procedure. COMPARISON: CT from 12/20/2017. FINDINGS/IMPRESSION: A catheter is in place over a guidewire into the left renal collecting system. The left renal collecting system is mildly dilated and opacified with contrast. Please see surgical report for further details. Dose area product (mGy.cm^2): 165.5. Fluoroscopy time: 4.9 seconds. Number of fluoroscopic spot images: 1. Electronically signed by: Mitchell Kaur M.D. 12/20/2017 1:46 PM Dictated Date/Time: 12/20/2017 1:45 PM
--- NOTE | 2017-12-20 13:57 | [facility] Post Operative Brief Note ---
Immediate Operative Summary Operative Date Dec 20, 2017. Pre-Operative Diagnosis Left ureteral stone Post-Operative Diagnosis Same as preoperative diagnosis Procedure(s) Performed Cystoscopy with insertion of left ureteral stent Surgeon Dr. Qureshi Success Coach Surgeon(s) None Estimated Blood Loss 0 ml Findings Consistent with Post-Op Diagnosis Specimens None Drains 5 by 24 stent Anesthesia Type MAC
--- NOTE | 2017-12-20 14:21 | Discharge Instructions ---
Discharge Instructions Date of Service Dec 20, 2017. Admission Reason for Admission: Flank Pain Discharge Discharge Diagnosis / Problem: left ureteral stone Discharge Goals Goal(s): Decrease discomfort, Improve disease control Activity Recommendations Activity Limitations: per Instructions/Follow-up section (no driving on narcotics) . Instructions / Follow-Up Instructions / Follow-Up Call [phone] to schedule Left ESWL for Friday at the urology office Current Hospital Diet Patient's current hospital diet: Regular Diet Discharge Diet Recommended Diet: Regular Diet Procedures Procedures Performed: Cystoscopy with insertion of left ureteral stent Medical Emergencies . Who to Call and When: Medical Emergencies: If at any time you feel your situation is an emergency, please call 911 immediately. . Non-Emergent Contact . . "Provider Documentation" section prepared by Alejandro Qureshi. . Parent Aide Recommendations Parent Aide Recommendations: take tramadol for pain no aspirin or toradol or advil call for fever over 101 VTE Core Measure Inpt VTE Proph given/why not?: SCD's
--- NOTE | 2017-12-20 14:27 | Anesthesiology Progress Note ---
Anesthesia Post Op Note Date & Time Dec 20, 2017 at 14:26 Vital Signs Pain Intensity: 0 Vital Signs Past 12 Hours Date Time Temp Pulse Resp B/P (MAP) Pulse Ox O2 Delivery O2 Flow Rate FiO2 12/20/17 14:05 36.4 74 16 108/69 99 Room Air 12/20/17 13:55 64 16 112/65 99 Room Air 12/20/17 13:49 36.3 60 16 111/68 100 Room Air 12/20/17 08:34 Room Air 12/20/17 07:59 36.8 63 16 122/74 (90) 100 Room Air 12/20/17 06:02 37.0 63 18 142/87 Room Air 12/20/17 04:43 79 20 143/83 98 Room Air 12/20/17 04:05 65 17 138/77 98 12/20/17 03:03 60 108/89 97 Room Air Notes Mental Status: alert / awake / arousable, participated in evaluation Pt Amnestic to Procedure: Yes Nausea / Vomiting: adequately controlled Pain: adequately controlled Airway Patency, RR, SpO2: stable & adequate BP & HR: stable & adequate Hydration State: stable & adequate Anesthetic Complications: no major complications apparent
--- NOTE | 2017-12-20 14:37 | Discharge Summary ---
Discharge Summary Date of Service Dec 20, 2017. Discharge Summary Admission Date: Dec 20, 2017 at 03:35 Discharge Date: Dec 20, 2017 Discharge Disposition: Home Principal Diagnosis: Obstructive uropathy - Left sided nephrolithiasis Procedures: Cystoscopy with placement of left sided ureteral stent ABD/PELVIS IV CONTRAST ONLY CLINICAL HISTORY: 22 years-old Female presenting with left flank pain, nausea/voimting x 2 days. TECHNIQUE: Multidetector CT of the abdomen and pelvis was performed after the administration of intravenous contrast. IV contrast: 94 mL of Optiray 320. A dose lowering technique was used consistent with the principles of ALARA (as low as reasonably achievable). COMPARISON: None. CT DOSE (mGy.cm): The estimated cumulative dose is 298.86 mGy.cm. FINDINGS: Ladies' Locker Room Attendant topogram: Unremarkable. Lung bases: Lungs and pleural spaces clear. Normal heart size. No pericardial or pleural effusion. Liver: Normal morphology. No liver lesion. Patent hepatic vasculature. Biliary: No intrahepatic or extrahepatic biliary ductal dilatation. Normal gallbladder. Pancreas: Normal. Spleen: Normal. Adrenal glands: Normal. Kidneys and ureters: Excretion of contrast from the right kidney with normal appearance of the right renal parenchyma. No right hydronephrosis. Delayed phase of perfusion in the left kidney with left renal enlargement and left perinephric fat stranding. Moderate left pelvocaliectasis. An obstructing calculus measuring 4 mm is noted at the left ureteropelvic junction. Mild urothelial thickening and periureteral fat stranding at the level of the renal pelvis and proximal left ureter. The right ureter is normal. Bladder: Normal. No bladder calculi. Pelvic organs: Uterus and ovaries normal. Bowel: Mild stool burden throughout normal caliber colon. The appendix is normal. No bowel obstruction. Peritoneal cavity: Trace free fluid in the pelvis. Lymph nodes: No enlarged lymph nodes in the abdomen or pelvis. Vasculature: Aorta and IVC patent and normal in caliber. Abdominal wall: Small fat-containing umbilical hernia. Musculoskeletal: Congenital bifid L5 vertebral body. IMPRESSION: 1. Obstructing 4 mm calculus at the left ureteropelvic junction with resultant moderate left hydronephrosis. 2. No additional renal or ureteral calculi. No bladder calculi. KUB CLINICAL HISTORY: 22 years-old Female presenting with ureteral stone, flank pain. TECHNIQUE: 12/20/2017 COMPARISON: CT of the abdomen and pelvis performed earlier the same day. FINDINGS: Nonobstructive bowel gas pattern. No gross pneumoperitoneum. Delayed excretion of contrast in the left kidney with abrupt cutoff at the level of the obstructing proximal left ureteral calculus, which projects at the level of L2-3. Dilation of the left renal collecting system. Opacification of the urinary bladder. Osseous structures normal. Lung bases clear. IMPRESSION: 1. Moderate left hydronephrosis with an obstructing left ureteral calculus at the level of L2-3. Consultations: Urology Medication Reconciliation Continued Medications: Drospirenone-Ethinyl Estradiol (Emerita 28) 1 Tab Tab 1 TAB PO DAILY for 28 Days, #28 TAB 11 Refills Escitalopram (Lexapro) 10 Mg Tab 10 MG PO DAILY, TAB Discharge Exam Ms. Beaulieu reports an improvement in her pain from yesterday. She denies fever , chills, nausea or vomiting. Review of Systems: Constitutional: No fever, No chills Respiratory: No cough, No shortness of breath Cardiovascular: No chest pain Abdomen: No nausea, No vomiting, No diarrhea, No constipation Physical Exam: General Appearance: WD/WN, no apparent distress Respiratory/Chest: lungs clear, normal breath sounds, no respiratory distress, no accessory muscle use Cardiovascular: regular rate, rhythm, no edema, no gallop, no murmur Abdomen / GI: soft, + pertinent finding (left sided flank tenderness) Hospital Course Ms. Beaulieu was admitted to [facility] due to a 4mm left sided kidney stone that was causing obstruction and moderate hydronephrosis. She was seen by urology who placed a stent into her left ureter and will be following up with her for extracorporeal shock wave lithotripsy. She was also discharged with tramadol for pain management and 500mg BID of ciprofloxacin for 7 days. Of note, her creatinine was found to be elevated on arrival, at 1.37. This was likely secondary to the ureteral obstruction and she was counselled on following up with her primary care provider in a week to recheck this. Her potassium was also low at 3.4, and this was supplemented with IV fluids containing potassium. Total Time Spent: Greater than 30 minutes This includes examination of the patient, discharge planning, medication reconciliation, and communication with other providers. Discharge Instructions Please refer to the electronic Patient Visit Report (Discharge Instructions) for additional information. Resident Tracking Resident Involvement: Resident Care Provided Care Provided: Adult Hospital Medicine Reviewed: Pt Seen/Exam by Me History left lower flank pain Constitutional: denies: fever Respiratory: negative: short of breath Cardiovascular: denies chest pain General Appearance: mild distress (sec to pain) Respiratory: lungs clear, no respiratory distress Cardiovascular: regular rate, rhythm Gastrointestinal: soft Neurologic/Psychiatric: alert, oriented x 3 Skin Characteristics: warm/dry Assessment/Plan Resident Physician Supervision Note: I independently interviewed and examined the patient and verified the serrano history and physical, reviewed labs and image studies, discussed the case with the resident Dr. Babcock and agree with the findings and care plan.
[2017-12-20] MEDS ORDERED: CIPR1TAB11 PO (15:12)
[2017-12-20] MEDS ORDERED: TRAM-10 PO ×4 (15:12→15:40)
--- NOTE | 2017-12-20 15:38 | OPERATIVE REPORT ---
DATE OF OPERATION: 12/20/2017 PROCEDURE PERFORMED: Cysto and left stent placement. PREOPERATIVE DIAGNOSIS: Obstructing left ureteral calculus with severe pain. POSTOPERATIVE DIAGNOSIS: Same. SURGEON: Dr. Qureshi. ANESTHESIA: Sedation. INDICATIONS: The patient is a 22-year-old female with ongoing left flank pain from a left ureteral calculus. We discussed the options including observation, ESWL without stent with subsequent ESWL and an attempt at ureteroscopy for this proximal ureteral stone. Given the options, we elected to place a left stent today. All of her questions were answered along with her father's. DESCRIPTION OF THE PROCEDURE: The patient was taken to the cysto suite where Venodyne stockings placed, was given sedation. After being prepped and draped in the usual sterile fashion with Venodyne stockings. She had been on antibiotics. She was placed in dorsal lithotomy position and prepped and draped in the usual sterile fashion. A 21-Azeri cystoscope was passed per urethra. A guidewire was placed in the left ureteral orifice. There was still contrast in the renal pelvis. The wire was passed up into the renal pelvis under fluoroscopy. A 5 cm 24-Azeri stent was passed over the wire without difficulty and the wire was removed. A fluoroscopy shot was taken of that stent in good position. The bladder was emptied and the patient was transferred to the recovery room in stable condition. I attest to the content of the Intraoperative Record and any orders documented therein. Any exception s are noted below.
[2017-12-20] MEDS ORDERED: SULF800T23 PO (17:23)
[2017-12-23] MEDS ORDERED: SULF800T23 PO (15:29)
== END 2017-12-20 17:50 | disposition home or self-care (01) | DRG 694 ==
LOC: C.EDB 23:36 → C.3E 12-20 03:35 → ENRESERV 12-20 04:56
PROVIDERS: ADMIT Hospitalist; ATTEND Family Medicine
PROC: 0T778DZ Dilation of Left Ureter with Intraluminal Device, Via Natural or Artificial Opening Endoscopic (ICD-10-PCS; principal; 2017-12-20 11:00)
DX: N13.2 Hydronephrosis with renal and ureteral calculous obstruction (principal); N17.9 Acute kidney failure, unspecified; E87.6 Hypokalemia; N18.3 Chronic kidney disease, stage 3 (moderate); F41.9 Anxiety disorder, unspecified; F32.9 Major depressive disorder, single episode, unspecified; Z79.3 Long term (current) use of hormonal contraceptives; Z79.899 Other long term (current) drug therapy

== ENCOUNTER → 2017-12-19 | Outpatient (CLI) | payer OTHER ==
[~2017-12-19] MED LIST: CIPR1TAB11 PO; DROS3TAB12 PO; ESCI10TA17 PO; SULF800T23 PO; TRAM-10 PO
--- NOTE | 2017-12-19 13:37 | DIAGNOSTIC IMAGING REPORT ---
PELVIC COMPLETE NON OB CLINICAL HISTORY: 22 years-old Female presenting with LEFT LOWER QUAD Pain, pelvic PAIN. TECHNIQUE: Real-time grayscale and color and spectral Doppler ultrasound imaging of the pelvis was performed first using a transabdominal probe and subsequently transvaginal for better characterization. COMPARISON: None. FINDINGS: Uterus: Normal. Anteverted anteflexed. The uterus measures 7.2 x 4.5 x 3.5 cm. Endometrial stripe measures 4 mm in thickness. Endometrium normal-appearing. Cervix normal. Right adnexa: Right ovary normal. Right ovary measures 2.9 x 1.7 x 1.6 cm. Normal color Doppler flow and arterial and venous waveforms within the ovarian parenchyma. Left adnexa: Left ovary normal. Left ovary measures 2.6 x 1.8 x 1.7 cm. Normal color Doppler flow and arterial and venous waveforms within the ovarian parenchyma. Other: No free fluid. IMPRESSION: No significant abnormality identified within the pelvis. Electronically signed by: Mitchell Kaur M.D. 12/19/2017 1:36 PM Dictated Date/Time: 12/19/2017 1:34 PM
== END | disposition home or self-care (01) ==
LOC: C.ULTRBC 12:42
PROVIDERS: ATTEND Family Medicine
DX: R10.30 Lower abdominal pain, unspecified (principal)

== ENCOUNTER → 2017-12-24 | Outpatient (CLI) | payer OTHER ==
[~2017-12-24] MED LIST changes: -CIPR1TAB11 PO; -TRAM-10 PO
== END | disposition home or self-care (01) ==
LOC: C.LABSPEC 17:20
PROVIDERS: ATTEND Nurse Practitioner Adult Health
DX: N20.0 Calculus of kidney (principal)

== ENCOUNTER → 2017-12-25 | Outpatient (CLI) | payer OTHER ==
[2017-12-25 19:28] LABS: BLOOD UREA NITROGEN 9 mg/dl (7-18)
== END | disposition home or self-care (01) ==
LOC: C.LAB 18:51
PROVIDERS: ATTEND Urology
DX: N20.0 Calculus of kidney (principal)

== ENCOUNTER → 2017-12-26 | Day surgery (SDC) | payer OTHER ==
[2017-12-23 15:29] VITALS: Ht 160 cm; Wt 59.1 kg
[~2017-12-26] VITALS: Ht 160 cm; Wt 59.1 kg
[~2017-12-26] MED LIST changes: +ATROPINE SULFATE 0.1 MG/ML 5ML SYR IV PRN; +CEFAZOLIN 2000MG IV PUSH 15 ML IV SCH; +EpHEDrine SULFATE INJ 50 MG/ML AMP IV PRN; +FENTANYL CITRATE INJ 50 MCG/1 ML 2 ML VIAL IV PRN; +FENTANYL CITRATE INJ 50 MCG/1 ML 2 ML VIAL ONE; +LACTATED RINGER'S 1000ML 1,000 ML IV SCH; +LIDOCAINE HCL 2% 2 ML VIAL (20MG/ML) ONE; +MIDAZOLAM HCL 1 MG/ML 2ML VIAL ONE; +ONDANSETRON INJ 2 MG/ML 2 ML VIAL IV PRN; +ONDANSETRON INJ 2 MG/ML 2 ML VIAL ONE; +OXYCODONE/ACETAMINOPHEN 5-325 TAB PO PRN; +PROPOFOL IV EMULSION 10 MG/ML 20 ML VIAL IV ONE
--- NOTE | 2017-12-26 08:32 | History & Physical Bridge Note ---
H&P Re-Evaluation Bridge Note: I have examined the patient, reviewed the History & Physical and in the interval since the performance of the History & Physical I have noted the following changes of clinical significance: No changes noted
--- NOTE | 2017-12-26 09:34 | Discharge Instructions ---
Discharge Instructions Date of Service Dec 26, 2017. Admission Reason for Admission: Stones Discharge Discharge Diagnosis / Problem: L renal stones s/p ESWL Discharge Goals Goal(s): Decrease discomfort, Improve disease control, Therapeutic intervention Activity Recommendations Activity Limitations: as noted below Lifting Limitations: no more than 25 pounds, gradually increase as tolerated Exercise/Sports Limitations: rest today, gradually increase as tolerated May Resume Sexual Activity: when tolerated Shower/Bathe: no limitations Driving or Machine Use: resume 1 day after discharge . Instructions / Follow-Up Instructions / Follow-Up As scheduled in office for follow-up with [facility] Xray beforehand. Current Hospital Diet Patient's current hospital diet: Discharge Diet Recommended Diet: Regular Diet (good fluid intake) Procedures Procedures Performed: Left Extracorporeal Shock Wave Lithotripsy Pending Studies Studies pending at discharge: no Medical Emergencies . Who to Call and When: Medical Emergencies: If at any time you feel your situation is an emergency, please call 911 immediately. . Non-Emergent Contact Non-Emergency issues call your: Urologist Call Non-Emergent contact if: you have a fever, temperature is above 101, your pain is not controlled, your pain is worsening, your pain is unusual for you, your pain is concerning you, you have any medication questions . . "Provider Documentation" section prepared by Eliseo Anna. . VTE Core Measure Inpt VTE Proph given/why not?: SCD's
--- NOTE | 2017-12-26 09:46 | [facility] Post Operative Brief Note ---
Immediate Operative Summary Operative Date Dec 26, 2017. Pre-Operative Diagnosis Left Renal Stone Post-Operative Diagnosis same Procedure(s) Performed Left Extracorporeal Shock Wave Lithotripsy Surgeon Dr. Brandy Anna Digital Coordinator Surgeon(s) 0 Estimated Blood Loss 0 Findings See Below Excellent stone fragmentation, 2200 shocks delivered Specimens none Drains Indwelling stent Anesthesia Type General Complication(s) none Disposition Accompanied Pt To Recover: no Disposition: Recovery Room / PACU
--- NOTE | 2017-12-26 10:19 | OPERATIVE REPORT ---
DATE OF OPERATION: 12/26/2017 PREOPERATIVE DIAGNOSIS: Left renal stone with indwelling stent. POSTOPERATIVE DIAGNOSIS: Same. PROCEDURE: Left-sided renal extracorporeal shockwave lithotripsy. SURGEON: Dr. Eliseo Anna. FACTORER: None. ANESTHESIA: General anesthesia with laryngeal mask. COMPLICATIONS: None. FINDINGS: 2200 shocks provided with excellent stone fragmentation. DETAILS OF PROCEDURE: The patient was brought to the litho suite. He was correctly identified and the stone was visualized on his most recent x-rays. After the correct time out was performed the patient was positioned over the therapy head. An adequate level of anesthesia was administered. The extracorporeal shockwave lithotripsy treatment was then commenced. Please see the [facility] sheet for complete treatment summary. After completion of the procedure the patient was taken to the recovery room in stable condition. I attest to the content of the Intraoperative Record and any orders documented therein. Any exception s are noted below.
[2017-12-26 10:31] VITALS: TEMP 37.3
--- NOTE | 2017-12-26 10:31 | Anesthesia Progress Nt - [facility] ---
Anesthesia Post Op Note Date & Time Dec 26, 2017 at 10:31 Vital Signs Pain Intensity: 0 Vital Signs Past 12 Hours Date Time Temp Pulse Resp B/P (MAP) Pulse Ox O2 Delivery O2 Flow Rate FiO2 12/26/17 10:23 36.8 57 13 122/79 98 Room Air 12/26/17 10:22 60 16 98 12/26/17 10:22 62 16 12/26/17 10:21 122/79 12/26/17 10:17 56 15 100 12/26/17 10:17 57 15 12/26/17 10:16 100/68 12/26/17 10:12 58 18 100 12/26/17 10:12 58 18 12/26/17 10:11 124/77 12/26/17 10:07 57 14 12/26/17 10:07 57 14 100 12/26/17 10:06 126/78 12/26/17 10:02 59 17 12/26/17 10:02 60 17 100 12/26/17 10:01 124/76 12/26/17 09:57 68 18 100 12/26/17 09:57 68 18 12/26/17 09:56 126/77 12/26/17 09:53 112/76 12/26/17 09:52 80 99 12/26/17 09:52 37.1 71 20 112/76 100 Mask 6 12/26/17 09:52 80 12/26/17 07:26 36.8 83 16 124/86 (99) 99 Room Air Notes Mental Status: alert / awake / arousable, participated in evaluation Pt Amnestic to Procedure: Yes Nausea / Vomiting: adequately controlled Pain: adequately controlled Airway Patency, RR, SpO2: stable & adequate BP & HR: stable & adequate Hydration State: stable & adequate Anesthetic Complications: no major complications apparent
[2017-12-26 10:57] VITALS: BP 119/81; PULSE 54; O2SAT 100
== END | disposition home or self-care (01) ==
LOC: X.SURG 07:11
PROVIDERS: ATTEND Urology
DX: N20.0 Calculus of kidney (principal); Z96.0 Presence of urogenital implants; Z88.1 Allergy status to other antibiotic agents; Z79.3 Long term (current) use of hormonal contraceptives; F41.9 Anxiety disorder, unspecified; Z98.890 Other specified postprocedural states

== ENCOUNTER → 2018-01-05 | Outpatient (CLI) | payer OTHER ==
[~2018-01-05] MED LIST changes: -ATROPINE SULFATE 0.1 MG/ML 5ML SYR IV PRN; -CEFAZOLIN 2000MG IV PUSH 15 ML IV SCH; -EpHEDrine SULFATE INJ 50 MG/ML AMP IV PRN; -FENTANYL CITRATE INJ 50 MCG/1 ML 2 ML VIAL IV PRN; -FENTANYL CITRATE INJ 50 MCG/1 ML 2 ML VIAL ONE; -LACTATED RINGER'S 1000ML 1,000 ML IV SCH; -LIDOCAINE HCL 2% 2 ML VIAL (20MG/ML) ONE; -MIDAZOLAM HCL 1 MG/ML 2ML VIAL ONE; -ONDANSETRON INJ 2 MG/ML 2 ML VIAL IV PRN; -ONDANSETRON INJ 2 MG/ML 2 ML VIAL ONE; -OXYCODONE/ACETAMINOPHEN 5-325 TAB PO PRN; -PROPOFOL IV EMULSION 10 MG/ML 20 ML VIAL IV ONE
--- NOTE | 2018-01-05 18:39 | DIAGNOSTIC IMAGING REPORT ---
[facility] HISTORY: N20.0 Nephrolithiasis COMPARISON: [facility] 12/20/2017. FINDINGS: The bowel gas pattern is unremarkable. There are no dilated loops of small bowel to suggest an obstruction. Multiple small stone fragments within the distal left ureter. The column of stones fragments measures a total length of 1.9 cm. A left ureteral stent is in position. No right ureteral calculi. No renal calculi identified. No pneumoperitoneum or pneumatosis. IMPRESSION: 1. The left ureteral stent appears to be in good position. 2. A column of stones fragments seen within the distal left ureter. Electronically signed by: Derick Hurst M.D. 01/05/2018 6:38 PM Dictated Date/Time: 01/05/2018 6:36 PM
== END | disposition home or self-care (01) ==
LOC: C.RAD 18:03
PROVIDERS: ATTEND Nurse Practitioner Adult Health
DX: N20.0 Calculus of kidney (principal); N20.1 Calculus of ureter; Z96.0 Presence of urogenital implants

== ENCOUNTER → 2018-01-06 | Outpatient (CLI) | payer OTHER | END | disposition home or self-care (01) | LOC: C.LABSPEC 17:52 | PROVIDERS: ATTEND Urology | DX: N20.0 Calculus of kidney (principal) ==

== ENCOUNTER → 2018-01-13 | Outpatient (CLI) | payer OTHER ==
[2018-01-13 16:16] LABS: BLOOD UREA NITROGEN 13 mg/dl (7-18); CREATININE 0.81 mg/dl (0.60-1.20)
== END | disposition home or self-care (01) ==
LOC: C.LAB 14:26
PROVIDERS: ATTEND Urology
DX: N20.1 Calculus of ureter (principal)

== ENCOUNTER → 2018-01-14 | Outpatient (CLI) | payer OTHER ==
[~2018-01-14] MED LIST changes: +OPTIRAY 300 IV PRN
--- NOTE | 2018-01-14 14:16 | DIAGNOSTIC IMAGING REPORT ---
IVP W/OR W/O TOMOGRAMS CLINICAL HISTORY: 22 years-old Female presenting with N20.1 Ureteral stone, history of stones, lithotripsy. TECHNIQUE: An abdominal software intern radiograph is performed. IVP pyelogram was then performed following the IV administration of 100 mL of Optiray 300, tomographic images are acquired in the corticomedullary and excretory phases of enhancement. Overhead views of the renal collecting system and bladder were obtained in multiple obliquities both pre and post void. COMPARISON: Plain radiograph from 01/05/[address] from 12/20/2017. FINDINGS: There has been interval removal of the left ureteral stent. The previous seen noted, of calcifications consistent with distal left ureteral calculi seen on the prior radiograph are no longer present. No calcifications project over the renal shadows allowing for bowel gas and stool. Nonobstructive bowel gas pattern. No gross pneumoperitoneum. Postcontrast imaging demonstrates symmetric excretion of contrast from the bilateral kidneys. No hydronephrosis. No filling defect within the urinary collecting systems. The ureters are nondilated. The distal left ureter specifically is normal appearing. The bladder distends normally. IMPRESSION: 1. Status post left ureteral stent removal with the distal left ureteral calculi no longer visualized. Electronically signed by: Mitchell Kaur M.D. 01/14/2018 2:13 PM Dictated Date/Time: 01/14/2018 1:28 PM
== END | disposition home or self-care (01) ==
LOC: C.RAD 12:39
PROVIDERS: ATTEND Urology
DX: N20.1 Calculus of ureter (principal)